=== PATIENT | male | born 1980 | race Caucasian/White ===

== ENCOUNTER 2019-03-15 00:20 | Inpatient (IN) | payer SELFPAY ==
[2019-03-15 01:07] LABS: #Basophils 0.1 thou/uL (0.0-0.2); #Eosinphils 0.2 thou/uL (0.0-0.7); #Lymphocytes 3.1 thou/uL (1.20-3.40); #Monocytes 0.7 thou/uL (0.11-0.59); #Neutrophils 7.5 thou/uL (1.40-6.50); %Basophils 0.7 % (0.0-1.0); %Eosinophils 1.7 % (0.0-10.0); %Lymphocytes 26.7 % (21.0-51.0); %Neutrophils 64.9 % (42.0-75.0); Hemoglobin 14.6 g/dL (14.0-18.0); Mean Corpuscular HGB CONC 32.9 g/dL (32.0-36.0); Mean Corpuscular Hemoglobin 29.4 pg (27.0-31.0); Mean Corpuscular Volume 89.3 fL (78.0-98.0); Mean Platelet Volume 7.5 fL (7.4-10.4); Platelet Count 273 thou/uL (130-400); RBC Distribution Width 12.4 % (11.5-14.5); Red Blood Cell (RBC) Count 4.96 mill/uL (4.70-6.10); White Blood Cell (WBC) Count 11.6 thou/uL (4.8-10.8)
[2019-03-15 01:30] LABS: ALT (SGPT) 74 U/L (8-55); AST (SGOT) 54 U/L (5-34); Albumin 3.9 g/dL (3.5-5.0); Alkaline Phosphatase 87 U/L (40-110); Anion Gap 14 mmol/L (10-20); BUN (Urea Nitrogen) 22 mg/dL (8.9-20.6); Bilirubin, Total 0.5 mg/dL (0.2-1.2); Calc. Creatinine Clearance 0 mL/min (70-130); Calcium 8.8 mg/dL (7.8-10.44); Carbon Dioxide 22 mmol/L (22-29); Chloride 108 mmol/L (98-107); Estimated GFR-MDRD 66; Globulin 2.6 g/dL (2.4-3.5); Glucose 98 mg/dL (70-105); Potassium 4.1 mmol/L (3.5-5.1); Protein, Total 6.5 g/dL (6.0-8.3); Sodium 140 mmol/L (136-145)
[2019-03-15 01:52] LABS: CKMB 3.1 ng/mL (0-6.6)
[2019-03-15 02:04] LABS: Acetaminophen Less than 6.0 mcg/mL (10.0-30.0); Alcohol Less than 10 mg/dL (Less than 10); Salicylate Less than 8.0 mg/dL (15.0-30.0)
[2019-03-15] MEDS ORDERED: Guaifenesin DM 100-10/5 ML UDCUP PO PRN (02:11)
[2019-03-15] MEDS ORDERED: Calcium Carbonate 500 MG ChewTAB PO PRN (02:11)
[2019-03-15] MEDS ORDERED: Ondansetron PF 4 MG/2 ML Vial IVP PRN (02:11)
[2019-03-15] MEDS ORDERED: Bisacodyl 10 MG SUPP PR PRN (02:11)
[2019-03-15] MEDS ORDERED: Senokot S 8.6-50 MG TAB PO PRN (02:11)
[2019-03-15] MEDS ORDERED: Furosemide 40 MG/4 ML VIAL ONE (02:13)
[2019-03-15] MEDS ORDERED: Nitroglycerin 0.4 MG TAB 1 EACH ONE (02:13)
[2019-03-15] MEDS ORDERED: Aspirin Chewable 81 MG TAB ONE (02:13)
--- NOTE | 2019-03-15 02:58 | HP ---
REASON FOR ADMISSION: CHF exacerbation. HISTORY OF PRESENTING ILLNESS: The patient gives history of having cough with chest congestion along with shortness of breath from last 3 weeks. This has been progressively getting worse. He felt like he was drowning. Finally, he made it to emergency room. The patient admits to using methamphetamine for at least 20 years or so. He last used it three days ago. No prior cardiac history. No prior cardiac workup. No fever or expectoration. PAST MEDICAL AND SURGICAL HISTORY: Has had wisdom tooth removed. CURRENT MEDICATIONS: None. ALLERGIES: ALLERGIC TO PENICILLIN. PERSONAL HISTORY: He has been using methamphetamine both IV and smoking it for last 20 years or so. Smokes one pack a day for last 10 to 15 years. Does not abuse alcohol. FAMILY HISTORY: Mother is living and has multiple medical issues including fibromyalgia. Father at the age of 66 from massive [place]. CODE STATUS: Full review. REVIEW OF SYSTEMS: CONSTITUTIONAL: Negative for weight loss or gain, ability to conduct usual activities. SKIN: Negative for rash, itching. EYES: Negative for double vision, pain. ENT/MOUTH: Negative for nose bleeding, neck stiffness, pain, tenderness. CARDIOVASCULAR: Negative for palpitations, dyspnea on exertion, orthopnea. RESPIRATORY: Negative for shortness of breath, wheezing, cough, hemoptysis, fever or night sweats. GASTROINTESTINAL: Negative for poor appetite, abdominal pain, heartburn, nausea , vomiting, constipation, or diarrhea. GENITOURINARY: Negative for urgency, frequency, dysuria, nocturia. MUSCULOSKELETAL: Negative for pain, swelling. NEUROLOGIC/PSYCHIATRIC: Negative for anxiety, depression. ALLERGY/IMMUNOLOGIC: Negative for skin rash, bleeding tendency. PHYSICAL EXAMINATION: GENERAL: The patient is a 38-year-old male who is currently not in any acute distress. VITAL SIGNS: Blood pressure 160/102, pulse 110 per minute, respiratory rate 18 per minute, temperature 97.8 degrees Fahrenheit, and saturating 99% on room air. NECK: Supple. No elevated JVD. HEENT: Eyes; extraocular muscles intact. Pupils are reacting to light. Oral cavity, mucous membranes are dry. No exudates or congestion. CARDIOVASCULAR SYSTEM: S1 and S2 heard. Loud S2. RESPIRATORY SYSTEM: Air entry 1+ bilateral. There is rales plus in the infrascapular area. ABDOMEN: Soft. Bowel sounds heard. No tenderness, rigidity, or guarding. EXTREMITIES: No peripheral edema or calf tenderness. VASCULAR SYSTEM: Peripheral pulses 1+ bilateral. No ischemic ulcerations or gangrene. CENTRAL NERVOUS SYSTEM: No gross focal deficits noted. The patient is alert, awake, and oriented well. PSYCHIATRIC: The patient's mood is euthymic. No hallucinations or delusions. LABORATORY DATA: EKG done shows sinus tach at 109 beats per minute. QRS duration is 88 milliseconds, CO interval is 152 milliseconds. Chest x-ray done shows mild cardiomegaly. Plasma alcohol less than 10. BNP 1045. Troponin I 0.03. CK-MB 3.1. AST 54, ALT 74, T bilirubin 0.5, alkaline phosphatase 87, serum bicarb 22, BUN 22, creatinine 1.2. White count of 11, H and H 14 and 44, platelet count 273 with 64% neutrophils. CLINICAL IMPRESSION AND PLAN: The patient will be admitted to telemetry for new onset congestive heart failure exacerbation. This likely is due to his chronic methamphetamine abuse. The last he used was 3 days back. He will be on Lasix 40 mg IV at 6 a.m. and 2 p.m. Small dose of Coreg and lisinopril. We will obtain echo with 2D Doppler for LV function. Cardiology consultation with Dr. Reich, who is on-call will be obtained. The patient was counseled with regard to complete cessation of drugs, substance use, and smoking. Job ID: [id number] MTDD
[2019-03-15 03:26] LABS: Amphetamine Detected (NotDetected); Barbiturates Screen Not Detected (NotDetected); Benzodiazepine Screen Not Detected (NotDetected); Cocaine Metabolite Screen Not Detected (NotDetected); Medtox Control Line Valid? VALID (VALID); Medtox Reader # READER 1; Methadone Not Detected (NotDetected); Methamphetamine Detected (NotDetected); Opiate Screen Detected (NotDetected); Oxycodone Screen Not Detected (NotDetected); Phencyclidine (PCP) Not Detected (NotDetected); THC/Cannabinoid Screen Not Detected (NotDetected); Tricyclic Screen Not Detected (NotDetected)
[2019-03-15 04:25] VITALS: BMI 27.6
[2019-03-15 04:51] LABS: #Basophils 0.1 thou/uL (0.0-0.2); #Eosinphils 0.2 thou/uL (0.0-0.7); #Lymphocytes 2.7 thou/uL (1.20-3.40); #Monocytes 0.7 thou/uL (0.11-0.59); #Neutrophils 6.8 thou/uL (1.40-6.50); %Basophils 0.7 % (0.0-1.0); %Eosinophils 1.9 % (0.0-10.0); %Lymphocytes 25.8 % (21.0-51.0); %Monocytes 6.2 % (0.0-10.0); %Neutrophils 65.4 % (42.0-75.0); Hemoglobin 14.7 g/dL (14.0-18.0); Mean Corpuscular HGB CONC 32.5 g/dL (32.0-36.0); Mean Corpuscular Hemoglobin 28.9 pg (27.0-31.0); Mean Corpuscular Volume 88.8 fL (78.0-98.0); Mean Platelet Volume 7.9 fL (7.4-10.4); Platelet Count 288 thou/uL (130-400); RBC Distribution Width 12.6 % (11.5-14.5); White Blood Cell (WBC) Count 10.4 thou/uL (4.8-10.8)
[2019-03-15 05:12] LABS: Anion Gap 13 mmol/L (10-20); BUN (Urea Nitrogen) 20 mg/dL (8.9-20.6); Calc. Creatinine Clearance 102 mL/min (70-130); Calcium 9.1 mg/dL (7.8-10.44); Carbon Dioxide 25 mmol/L (22-29); Chloride 103 mmol/L (98-107); Estimated GFR-MDRD 65; Glucose 116 mg/dL (70-105); Potassium 3.4 mmol/L (3.5-5.1); Sodium 138 mmol/L (136-145)
[2019-03-15 05:17] LABS: Troponin I 0.043 ng/mL (< 0.028)
[2019-03-15 05:32] LABS: HBCM Index 0.07 S/CO (0-0.79); HBSAg Index 0.16 S/CO (0-0.99); Hep A IgM AB Non-Reactive (NonReactive); Hep A IgM S/CO 0.13 S/CO (0-0.79); Hep B Surf Ag Non-Reactive S/CO (NonReactive); Hep C IgG Ab Non-Reactive (NonReactive); Hep C Index 0.07 S/CO (0-0.79); Hepatitis B Core IgM Abs Non-Reactive (NonReactive); Thyroid Stimulating Hormone 2.1563 uIU/mL (0.35-4.94)
[2019-03-15] MEDS: Furosemide 40 MG/4 ML VIAL SLOW IVP SCH ×2 (06:12→14:12)
[2019-03-15 07:32] LABS: Troponin I 0.039 ng/mL (< 0.028)
--- NOTE | 2019-03-15 07:43 | RAD ---
EXAM: Chest 2 views: HISTORY: Cough and shortness of breath COMPARISON: None. FINDINGS: There is a normal-sized cardiomediastinal silhouette. There is no evidence of consolidation, mass, or pleural effusion. The bones are unremarkable. IMPRESSION: No evidence of acute cardiopulmonary disease
[2019-03-15] MEDS ORDERED: Labetalol HCl 100 MG/20 ML VIAL SLOW IVP PRN (08:54)
[2019-03-15] MEDS ORDERED: diphenhydrAMINE 25 MG CAP PO PRN (08:54)
[2019-03-15] MEDS ORDERED: Melatonin 3 MG TAB PO PRN (08:54)
[2019-03-15] MEDS ORDERED: Benzonatate 100 MG CAP PO PRN (08:54)
[2019-03-15] MEDS: Lisinopril 2.5 MG TAB PO SCH (09:01)
[2019-03-15] MEDS: Aspirin Chewable 81 MG TAB PO SCH (09:02)
[2019-03-15] MEDS: Carvedilol 3.125 MG TAB PO SCH ×2 (09:02→21:06)
[2019-03-15] MEDS: Enoxaparin Sodium 40 MG/0.4 ML SYRINGE SC SCH (09:03)
[2019-03-15] MEDS: Famotidine 20 MG TAB PO SCH ×2 (09:03→21:06)
[2019-03-15] MEDS: Albuterol Sulfate 1.25 MG/3 ML NEB NEB SCH ×3 (09:09→22:59)
[2019-03-15] MEDS ORDERED: Nicotine 14 MG PATCH TD SCH (15:00)
--- NOTE | 2019-03-15 15:14 | CON ---
DATE OF CONSULTATION: 03/15/2019 REASON FOR CONSULTATION: New onset cardiomyopathy. PRIMARY TOUR ESCORT: None. HISTORY OF PRESENT ILLNESS: Mr. Borges is a 38-year-old gentleman, who recently presented with increased shortness of breath. He states it has occurred over the last several weeks. He felt he had a URI three weeks ago. It never improved. He has also had PND and orthopnea. He also states he is a daily meth user and has for the last 20 years. He also has a history of tobacco abuse. PAST MEDICAL HISTORY: Methamphetamine use. HOME MEDICATIONS: None. ALLERGIES: PENICILLIN. SOCIAL HISTORY: As above. REVIEW OF SYSTEMS: A 10-point review of systems is reviewed and as above, otherwise negative. PHYSICAL EXAMINATION: GENERAL: Patient is a pleasant male, who is in no acute distress. The patient appears their stated age. VITAL SIGNS: Blood pressure 133/98, pulse 97, and temperature 97.1. NEUROLOGIC: The patient is alert and oriented x3 with no focal neurologic deficits. HEENT: Sclerae without icterus. Mouth has moist mucous membranes with normal pallor. NECK: No JVD. Carotid upstroke brisk. No bruits bilaterally. LUNGS: Clear to auscultation with unlabored respirations. BACK: No scoliosis or kyphosis. CARDIAC: Regular rate and rhythm with normal S1 and S2. No S3 or S4 noted. No significant rubs, murmurs, thrills, or gallops noted throughout the precordium. PMI is not displaced. There is no parasternal heave. ABDOMEN: Soft, nontender, nondistended. No peritoneal signs present. No hepatosplenomegaly. No abnormal striae. EXTREMITIES: 2+ femoral and 2+ dorsalis pedis pulses. No cyanosis, clubbing, or edema. SKIN: No gross abnormalities. PERTINENT LABORATORY DATA: Hemoglobin 14.7, hematocrit 45.3. BNP of 1045. Urine drug screen positive for opiates, amphetamines, and methamphetamines. IMPRESSION: 1. New onset cardiomyopathy. 2. Methamphetamine use. 3. Tobacco abuse. RECOMMENDATIONS: Mr. Borges's overall LVEF estimated 10% to 15%. The left ventricle appears dilated. The etiology is likely due to methamphetamine use. Given his new onset cardiomyopathy and previous history of tobacco abuse, I did recommend coronary angiography with possible PCI. I discussed the procedure in full detail with Mr. Borges. The risks included, not limited to the following: , stroke, [place], need for emergency surgery, loss of limb, bleeding, and infection, as well as a reaction to the dye causing kidney failure and needing long-term dialysis. I also discussed the risks of PCI to include all of the above including coronary dissection and perforation in addition to acute stent thrombosis and restenosis. All questions were answered. I also discussed using LifeVest in order to protect him from sudden cardiac as we use medications to improve his heart function and as he stops using methamphetamines. After much discussion with he and his girlfriend, he has opted not to proceed with coronary angiography and opted not to proceed with LifeVest. He understands the risks. At this point, we would recommend beta-hank therapy in addition to aspirin and SABRINA inhibitor therapy. He is currently on Lasix IV. He states he overall feels better after diuresis. Otherwise, I have no further recommendations. Job ID: [id number]
[2019-03-15] MEDS: Acetaminophen 325 MG TAB PO PRN ×2 (16:38→21:06)
[2019-03-15] MEDS ORDERED: Lorazepam 2 MG/ML VIAL SLOW IVP PRN (21:52)
[2019-03-15] MEDS ORDERED: Potassium Chloride 20 MEQ TAB PO SCH (22:00)
[2019-03-16 05:25] LABS: HIV (1/2) Antibody/Antigen Non-Reactive (NonReactive); HIV 1/2 INDEX 0.14 S/CO (<1.00)
[2019-03-16] MEDS ORDERED: Carvedilol 3.125 MG TAB PO SCH (06:59)
--- NOTE | 2019-03-16 07:01 | PDOC.CPN ---
- Subjective Date: 03/16/19 Time: 10:20 - Objective Allergies/Adverse Reactions: Allergies Allergy/AdvReac Type Severity Reaction Status Date / Time Penicillins Allergy Verified 03/15/19 04:21 Visit Medications: Current Medications Acetaminophen (Tylenol) 650 mg PO Q4H PRN PRN Reason: Headache/Fever/Mild Pain (1-3) Last Admin: 03/15/19 21:06 Dose: 650 mg Albuterol Sulfate (Albuterol Sulfate) 1.25 mg NEB [id number] [facility] Last Admin: 03/15/19 22:59 Dose: 1.25 mg Albuterol/Ipratropium (Duoneb) 3 ml NEB [id number] PRN PRN Reason: SOB &/or Wheezing Aspirin (Aspirin Chewable) 81 mg PO DAILY [facility] Last Admin: 03/15/19 09:02 Dose: 81 mg Benzonatate (Tessalon) 100 mg PO Q4H PRN PRN Reason: Cough Bisacodyl (Dulcolax) 10 mg RI DAILYPRN PRN PRN Reason: Constipation Calcium Carbonate (Tums) 1,000 mg PO Q4H PRN PRN Reason: Heartburn or Indigestion Diphenhydramine HCl (Benadryl) 25 mg PO Q6H PRN PRN Reason: Itching & Insomnia Last Admin: 03/15/19 21:06 Dose: 25 mg Enoxaparin Sodium (Lovenox) 40 mg SC 0900 [facility] Last Admin: 03/15/19 09:03 Dose: 40 mg Famotidine (Pepcid) 20 mg PO BID [facility] Last Admin: 03/15/19 21:06 Dose: 20 mg Furosemide (Lasix) 40 mg SLOW IVP 0600,1400 [facility] Last Admin: 03/15/19 14:12 Dose: 40 mg Guaifenesin/Dextromethorphan (Robitussin Dm) 15 ml PO Q4H PRN PRN Reason: Cough Labetalol HCl (Normodyne) 10 mg SLOW IVP Q4H PRN PRN Reason: SBP Greater Than 180 Lisinopril (Zestril) 2.5 mg PO DAILY [facility] Last Admin: 03/15/19 09:01 Dose: 2.5 mg Lorazepam (Ativan) 1 mg SLOW IVP ONE PRN PRN Reason: WITHDRWAL Stop: 03/16/19 21:53 Melatonin (Melatonin) 3 mg PO HSPRN PRN PRN Reason: Insomnia Last Admin: 03/15/19 21:06 Dose: 3 mg Nicotine (Nicoderm Patch) 14 mg TD Q24HR [facility] Last Admin: 03/15/19 16:09 Dose: 14 mg Ondansetron HCl (Zofran) 4 mg IVP Q6H PRN PRN Reason: Nausea/Vomiting Potassium Chloride (K-Dur) 40 meq PO TID [facility]BE Senna/Docusate Sodium (Senokot S) 2 tab PO BID PRN PRN Reason: Constipation Vital Signs & Weight: Vital Signs Temp Pulse Resp BP Pulse Ox 03/16/19 04:00 97.3 F L 95 18 136/79 95 03/16/19 03:17 102 H 124/87 03/15/19 22:59 89 14 98 03/15/19 21:03 97.9 F 101 H 20 132/85 93 L Weight 198 lb 6.656 oz - Physical Exam General: alert & oriented x3 Neck: supple neck Cardiac: regular rate and rhythm, no murmur, regular rate Lungs: clear to auscultation Neuro: grossly intact Abdomen: soft, non-tender - Labs Result Diagrams: 03/15/19 04:32 03/15/19 04:32 Troponin/CKMB CK-MB (CK-2) 3.1 ng/mL (0-6.6) 03/15/19 01:02 Troponin I 0.039 ng/mL (< 0.028) H 03/15/19 06:57 - Assessment/Plan Assessment/Plan: Cardiomyopathy of unknown etiology Tobacco use Meth use Etiology to CM is likely meth use this is a reversible cause of he stops meth; discussed importance of cessation with pt Increase coreg Pt not interested in angio or lifevest; pt understands risk of SCD without lifevest once euvolemic, ok for DC with outpatient fu Pt would like to go home fu in 1-2 weeks
[2019-03-16] MEDS: Albuterol Sulfate 1.25 MG/3 ML NEB NEB SCH (07:08)
[2019-03-16] MEDS: Furosemide 40 MG/4 ML VIAL SLOW IVP SCH (07:26)
[2019-03-16] MEDS: Enoxaparin Sodium 40 MG/0.4 ML SYRINGE SC SCH (08:07)
[2019-03-16] MEDS: Lisinopril 2.5 MG TAB PO SCH (08:07)
[2019-03-16] MEDS: Famotidine 20 MG TAB PO SCH (08:07)
[2019-03-16] MEDS: Aspirin Chewable 81 MG TAB PO SCH (08:07)
[2019-03-16 08:36] VITALS: TEMP 98.6
[2019-03-16] MEDS ORDERED: Carvedilol 6.25 MG TAB PO SCH (09:00)
[2019-03-16] MEDS ORDERED: Potassium Chloride 20 MEQ TAB PO SCH (09:00)
[2019-03-16 14:45] VITALS: BP 110/75
--- NOTE | 2019-03-17 02:13 | DIS ---
DATE OF ADMISSION: 03/15/2019 DATE OF DISCHARGE: 03/16/2019 REASON FOR HOSPITALIZATION: Shortness of breath. 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 PROCEDURES PERFORMED AND TREATMENTS RENDERED: Mr. Borges is a 38-year-old gentleman with past medical history of extensive methamphetamine use, who has recently graduated to injecting methamphetamines, who presents with worsening shortness of breath. The patient had an echocardiogram that was performed and found ejection fraction of 10% to 15%. The patient was seen and evaluated by Cardiology-please see full consultation notes and progress notes for details. The patient was placed on appropriate medical therapy by cotton sampler. The patient was offered further invasive procedures including cardiac catheterization, defibrillator, LifeVest, and the patient adamantly refuses all of these treatments. He states that he is going to quit methamphetamines and with maximum medical therapy, he would like to see his heart improved. The patient was advised risks and benefits of this by myself and Cardiology, and the patient and family understands this. The patient does admit methamphetamine injection use and his urinary toxicology was found to be positive for methamphetamines, amphetamines, and opiates on admission. The patient's electrolytes and labs are overly benign. The patient was recommended safe for discharge by Cardiology on 03/16/2019. CONDITION ON DISCHARGE: Stable. SPECIFIC INSTRUCTIONS FOR THE PATIENT/FAMILY: 1. The patient is recommended to abstain from methamphetamine use. 2. The patient is recommended to abstain from all illicit substances. 3. The patient is recommended to take cardiac medications as directed and follow up with cotton sampler at his upcoming appointment. 4. The patient recommended to take all other home medications as directed. 5. The patient is recommended to follow up with primary care physician in the next 5 to 7 days. 6. The patient is recommended to follow up with Cardiology in the next 1 to 2 weeks. 7. The patient is recommended to return to acute care hospital if he is unable to comply with any of the previously mentioned steps. 8. The patient is recommended to return to acute care hospital immediately if signs or symptoms return, worsen, or any other new symptoms occur. DISCHARGE MEDICATIONS: 1. Aspirin 81 mg one tablet p.o. daily. 2. Carvedilol 6.25 mg one tablet p.o. b.i.d. 3. Furosemide 20 mg one tablet p.o. daily. 4. Lisinopril 2.5 mg one tablet p.o. daily. 5. Potassium chloride 10 mEq one tablet p.o. daily. All other home medications were continued without changes and he is recommended to renew [id number] nicotine replacement to get him off cigarettes. Greater than 37 minutes spent coordinating care and discharge process for this patient. Job ID: [id number]
--- NOTE | 2019-03-17 02:38 | PQF ---
Rigoberto Borges ERIK MD [id number] CLINICAL DOCUMENTATION CLARIFICATION FORM: POST DISCHARGE Addendum to original discharge summary date: ____ Late entry note date: __ DATE:03/17/2019 ATTN: Jonatan Cervantes Please exercise your independent, professional judgment in responding to the clarification form. Clinical indicators are provided on the bottom of this form for your review Please check appropriate box(s): HEART FAILURE: A. TYPE: [ XX ] Systolic / HFrEF [ ] Diastolic / HFpEF [ ] Combined Systolic / Diastolic B. ACUITY [ ] Acute [ ] Acute on Chronic [ ] Chronic [ ] Other diagnosis [ ] Unable to determine In addition, please specify: Present on Admission (POA): [ XX ] Yes [ ] No [ ] Unable to determine For continuity of documentation, please document condition throughout progress notes and discharge summary. Thank You. CLINICAL INDICATORS - SIGNS / SYMPTOMS / LABS SHERIDAN p1 03/15 Summary : Ejection fraction is visually estimated to 10-15% SHERIDAN p1 03/15 Summary : there is a small trivila pericardial effusion H&P p1 03/15 Dr Mosher history of having cough with chest congestion along with SOB from last 3 weeks H&P p1 03/15 Dr Mosher HE felt like he was drowning H&P p1 03/15 Dr Mosher Admits to using methamphetamine for at least 20 years or so. He last used it three days ago. H&P p2 03/15 Dr Mosher admitted to telemetry for new onset congestive heart failure exacerbation this likely due to chronic methamphetamine abuse RISKS: H&P p1 03/15 Using Methamphetamine both IV and smoking H&P p2 03/15 Congestive heart failure exacerbation TREATMENTS: TTE ordered 03/15APR 18 IV Lasix APR 18 Coreg APR 18 Lisinopril H&P p2 03/15 Counseled with regard to complete cessation of drugs, substance use and smoking Cardiology Consult 03/15 Jordan Donahue (This form is maintained as a part of the permanent medical record) 2014 [email or web address]. All Rights Reserved [email or web address]
== END 2019-03-16 13:11 | disposition home or self-care (01) | DRG 917 ==
LOC: ERS 00:20 → 2NO 03:22
PROVIDERS: ADMIT Internal Medicine; ATTEND Internal Medicine
DX: T43.621A Poisoning by amphetamines, accidental (unintentional), initial encounter (principal); I50.23 Acute on chronic systolic (congestive) heart failure; I42.7 Cardiomyopathy due to drug and external agent; F17.200 Nicotine dependence, unspecified, uncomplicated; F15.10 Other stimulant abuse, uncomplicated; Z88.0 Allergy status to penicillin
CPT/HCPCS: 36415; 36416; 71046; 80053; 80074; 80306; 80307; 82553; 83880; 84443; 84484; 85025; 87389; 93005; 93306; 93798; 94640; 96374; J1650; J1940; J7620; Q0163

== ENCOUNTER 2021-10-24 05:59 | Emergency (ER) | payer SELFPAY ==
[2021-10-24 06:43] LABS: #Eosinphils 0.1 thou/uL (0.0-0.7); #Lymphocytes 1.4 thou/uL (1.20-3.40); #Monocytes 0.6 thou/uL (0.11-0.59); %Basophils 0.5 % (0.0-1.0); %Lymphocytes 15.4 % (21.0-51.0); %Monocytes 6.5 % (0.0-10.0); %Neutrophils 76.6 % (42.0-75.0); Hemoglobin 13.2 g/dL (14.0-18.0); Mean Corpuscular HGB CONC 33.1 g/dL (32.0-36.0); Mean Corpuscular Hemoglobin 29.8 pg (27.0-31.0); Mean Corpuscular Volume 90.1 fL (78.0-98.0); Mean Platelet Volume 7.8 fL (7.4-10.4); Platelet Count 220 thou/uL (130-400); RBC Distribution Width 13.1 % (11.5-14.5); Red Blood Cell (RBC) Count 4.41 mill/uL (4.70-6.10); White Blood Cell (WBC) Count 9.1 thou/uL (4.8-10.8)
[2021-10-24 07:03] LABS: ALT (SGPT) 33 U/L (8-55); AST (SGOT) 27 U/L (5-34); Albumin 4.1 g/dL (3.5-5.0); Alkaline Phosphatase 85 U/L (40-110); Anion Gap 18 mmol/L (10-20); BUN (Urea Nitrogen) 19 mg/dL (8.9-20.6); Calc. Creatinine Clearance 0 mL/min (70-130); Calcium 9.3 mg/dL (7.8-10.44); Carbon Dioxide 21 mmol/L (22-29); Chloride 107 mmol/L (98-107); Estimated GFR 68; Globulin 2.5 g/dL (2.4-3.5); Glucose 113 mg/dL (70-105); Potassium 3.6 mmol/L (3.5-5.1); Protein, Total 6.6 g/dL (6.0-8.3); Sodium 142 mmol/L (136-145)
[2021-10-24 07:25] LABS: CKMB 4.1 ng/mL (0-6.6)
[2021-10-24] MEDS ORDERED: Carvedilol 6.25 MG TAB PO SCH (09:30)
[2021-10-24 10:26] LABS: Troponin I 0.034 ng/mL (< 0.028)
[2021-10-24] MEDS ORDERED: Furosemide 20 MG TAB PO SCH (11:15)
== END 2021-10-24 11:43 | disposition home or self-care (01) ==
LOC: ERS 05:59
DX: I50.9 Heart failure, unspecified (principal)
CPT/HCPCS: 36415; 71045; 80053; 82553; 83880; 84484; 85025; 93005

== ENCOUNTER 2024-09-05 21:25 | Emergency (ER) | payer SELFPAY ==
[2024-09-05 23:03] LABS: #Basophils 0.04 10x3/uL (0.0-0.2); #Eosinophils 0.16 10x3/uL (0.0-0.7); #Monocytes 0.56 10x3/uL (0.11-0.59); #Neutrophils 8.33 10x3/uL (1.40-6.50); %Basophils 0.4 % (0.0-1.0); %Eosinophils 1.5 % (0.0-10.0); %Lymphocytes 13.6 % (21.0-51.0); %Monocytes 5.3 % (0.0-10.0); %Neutrophils 78.8 % (42.0-75.0); Hematocrit 45.4 % (42.0-52.0); Hemoglobin 15.8 g/dL (14.0-18.0); Mean Corpuscular Hemoglobin 30.7 pg (27.0-31.0); Mean Corpuscular Volume 88.2 fL (78.0-98.0); Platelet Count 193 10x3/uL (130-400); Red Blood Cell (RBC) Count 5.15 mill/uL (4.70-6.10); White Blood Cell (WBC) Count 10.57 10x3/uL (4.8-10.8)
[2024-09-05 23:19] LABS: ALT (SGPT) 75 U/L (Less than 45); AST (SGOT) 75 U/L (11-34); Albumin 4.1 g/dL (3.1-4.5); Alkaline Phosphatase 85 U/L (40-110); Anion Gap 14 mmol/L (10-20); BUN (Urea Nitrogen) 15 mg/dL (8.9-20.6); Bilirubin, Total 0.5 mg/dL (0.3-1.2); Calc. Creatinine Clearance 0 mL/min (70-130); Calcium 9.1 mg/dL (7.8-10.44); Carbon Dioxide 23 mmol/L (22-29); Chloride 107 mmol/L (98-107); Globulin 3.3 g/dL (2.4-3.5); Glucose 107 mg/dL (70-105); Lipase 16 U/L (8-78); Potassium 3.7 mmol/L (3.5-5.1); Sodium 140 mmol/L (136-145)
[2024-09-05 23:24] LABS: Troponin I 0.024 ng/mL (< 0.028)
[2024-09-06 01:07] LABS: Troponin I 0.016 ng/mL (< 0.028)
== END 2024-09-06 02:29 | disposition home or self-care (01) ==
LOC: ERS 21:25
DX: R55 Syncope and collapse (principal); I50.9 Heart failure, unspecified; J44.9 Chronic obstructive pulmonary disease, unspecified; F17.210 Nicotine dependence, cigarettes, uncomplicated; Z79.899 Other long term (current) drug therapy
CPT/HCPCS: 71045; 80053; 83690; 83880; 84484; 85025; 85379; 93005